=== PATIENT | male | born 1980 | race African-American/Black ===

== ENCOUNTER 2021-04-15 21:55 | Emergency (ER) | payer OTHER ==
[2021-04-15 22:05] VITALS: BP 168/108
[2021-04-15] MEDS ORDERED: SILVER SULFADIAZINE CREAM 25 GM TUBE TOP STA (23:10)
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
== END 2021-04-15 23:23 | disposition home or self-care (01) ==
LOC: ED 21:55
DX: T23.261A Burn of second degree of back of right hand, initial encounter (principal); T23.231A Burn of second degree of multiple right fingers (nail), not including thumb, initial encounter; T22.211A Burn of second degree of right forearm, initial encounter; X03.0XXA Exposure to flames in controlled fire, not in building or structure, initial encounter; Y93.89 Activity, other specified
CPT/HCPCS: 99282; 99284; A9270